=== PATIENT | male | born 1940 | race Two or more races ===

== ENCOUNTER 2020-03-01 14:11 | Outpatient (CLI) | payer OTHER | END 2020-03-01 14:29 | disposition home or self-care (01) | LOC: RAD 14:11 | PROVIDERS: ATTEND General Practice | DX: Z11.1 Encounter for screening for respiratory tuberculosis (principal) ==

== ENCOUNTER → 2024-08-25 | Outpatient (CLI) | payer OTHER | END | disposition home or self-care (01) | LOC: NUCLEAR 08:43 | PROVIDERS: ATTEND Internal Medicine | DX: I50.30 Unspecified diastolic (congestive) heart failure (principal); I10 Essential (primary) hypertension ==